=== PATIENT | female | born 1980 | race Caucasian/White ===

== ENCOUNTER 2019-05-27 11:19 | Emergency (ER) | payer BC ==
[2019-05-27] MEDS ORDERED: IBUPROFEN 400 MG TAB ONE (11:57)
[2019-05-27] MEDS ORDERED: AMOX/K CLAV 875 MG TAB ONE (11:57)
[2019-05-27] MEDS ORDERED: ACETAMINOPHEN 325 MG TABLET ONE (11:57)
--- NOTE | 2019-05-27 12:18 | RAD REPORT ---
EXAM DESCRIPTION: RAD - Hand Left 3 View - 05/27/2019 12:08 pm CLINICAL HISTORY: ANIMAL BITE COMPARISON: No comparisons FINDINGS: Soft tissue swelling is seen adjacent to the fifth metacarpal. No fracture seen.
--- NOTE | 2019-05-27 13:07 | EDPHYS ---
Physician Documentation [facility] Name: Arleen Brower Age: 39 yrs Sex: Female : 1980 Arrival Date: 05/27/2019 Time: 11:21 Bed 9 Private MD: ED Physician Asad Castro HPI: 05/26 11:40 This 39 yrs old Female presents to ER via Ambulatory with complaints of Dog cp Bite. 11:40 The patient was bitten on the left hand, by a dog, while trying to stop animals from cp fighting, at home. Onset: The symptoms/episode began/occurred just prior to arrival. Animal information: Animal control has been notified. Secondary to the bite the patient reports multiple lacerations, that are superficial, pain, multiple puncture wounds, that are deep, swelling. Associated signs and symptoms: Pertinent negatives: motor deficit, numbness distal to wound, heavy bleeding. 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 - Social history:: Smoking status: Patient reports the use of cigarette tobacco products, 3-4 cigarettes a day. ROS: 11:45 Constitutional: Negative for body aches, chills, fever. cp 11:45 Eyes: Negative for injury, pain, redness, and discharge. cp 11:45 ENT: Negative for drainage from ear(s), ear pain, sore throat, difficulty swallowing, difficulty handling secretions. 11:45 Cardiovascular: Negative for chest pain. 11:45 Respiratory: Negative for cough, shortness of breath, wheezing. 11:45 Abdomen/GI: Negative for abdominal pain, nausea, vomiting, and diarrhea. 11:45 Skin: Positive for laceration(s), puncture, swelling, of the left hand. 11:45 Neuro: Negative for altered mental status, headache, numbness, weakness. 11:45 All other systems are negative. Exam: 12:00 Head/Face: Normocephalic, atraumatic. cp 12:00 Constitutional: The patient appears in no acute distress, alert, awake, non-toxic, well developed, well nourished. 12:00 Head/face: Exam is negative for obvious evidence of injury or deformity. 12:00 Chest/axilla: Inspection: normal. 12:00 Cardiovascular: Rate: tachycardic. 12:00 Respiratory: the patient does not display signs of respiratory distress, Respirations: normal, labored breathing, is not present. 12:00 Musculoskeletal/extremity: Extremities: grossly normal except: noted in the left hand: laceration, puncture, swelling, ROM: full active range of motion, in the left hand, Perfusion: the extremity is normally perfused throughout, Sensation intact. 12:00 Skin: injury, laceration(s), that can be described as linear, multiple, superficial, mild bleeding noted to bonilla and dorsal sides left hand, puncture(s), that are deep, of the hyperthenar eminence left hand and posterior aspect proximal left thumb. Vital Signs: 11:24 BP 122 / 77; Pulse 110; Resp 18 S; Temp 99.3(TE); Pulse Ox 99% on R/A; Weight 117.93 kg aa5 (R); Height 5 ft. 2 in. (157.48 cm) (R); Pain 7/10; 11:24 Body Mass Index 47.55 (117.93 kg, 157.48 cm) aa5 MDM: 11:28 Patient medically screened. cp 13:05 Data reviewed: vital signs, nurses notes, radiologic studies, plain films, and as a cp result, I will discharge patient. 13:05 Differential diagnosis: superficial laceration, tendon injury, vascular injury, rabies, cp cellulitis. Test interpretation: by ED physician or midlevel provider: plain radiologic studies, xrays of left hand negative for fracture. Counseling: I had a detailed discussion with the patient and/or guardian regarding: the historical points, exam findings, and any diagnostic results supporting the discharge/admit diagnosis, radiology results, to return to the emergency department if symptoms worsen or persist or if there are any questions or concerns that arise at home. Response to treatment: the patient's symptoms have markedly improved after treatment. Special discussion: I discussed in detail with the patient the higher chance of wound infection based on his presenting history. ED course: VSS. Wounds cleaned and dressed. Will discharge to home for continued monitoring. 05/26 11:40 Order name: XRAY Hand LEFT 3 View cp 05/26 12:19 Order name: RAD; Complete Time: 13:29 [facility] 05/26 12:33 Order name: Wound Care: please clean and irrigate hand wounds; Complete Time: 12:36 cp 05/26 13:05 Order name: Wound dressing; Complete Time: 13:38 cp Administered Medications: 11:52 Drug: Augmentin 875 mg Route: PO; aa5 13:30 Follow up: Response: No adverse reaction aa5 11:52 Drug: Ibuprofen 800 mg Route: PO; aa5 13:30 Follow up: Response: No adverse reaction aa5 11:52 Drug: Tylenol 650 mg Route: PO; aa5 13:30 Follow up: Response: No adverse reaction aa5 Disposition: 05/27/19 13:06 Discharged to Home. Impression: Bitten by dog, Puncture wound without foreign body of left hand. - Condition is Stable. - Discharge Instructions: Puncture Wound, Animal Bite. - Prescriptions for Augmentin 875- 125 mg Oral Tablet - take 1 tablet by ORAL route every 12 hours for 10 days; 20 tablet. Naprosyn 500 mg Oral Tablet - take 1 tablet by ORAL route 2 times per day take with food; 20 tablet. - Medication Reconciliation Form, Thank You Letter, Antibiotic Education, Prescription Opioid Use, Work release form form. - Follow up: Private Physician; When: 2 - 3 days; Reason: Wound Recheck. - Problem is new. - Symptoms have improved. Addendum: 05/30/2019 07:04 Co-signature as Attending Physician, Asad Castro MD I agree with the assessment and c acosta plan of care. Signatures: Dispatcher [employer] Asad Serrano MD MD cha Williams, Irene, RN RN iw Maribel Ley RN RN aa5 Asad Feng PA PA cp Corrections: (The following items were deleted from the chart) 05/26 13:38 13:05 Splint ordered. cp iw 13:38 13:06 05/27/2019 13:06 Discharged to Home. Impression: Bitten by dog; Puncture wound iw without foreign body of left hand. Condition is Stable. Forms are Medication Reconciliation Form, Thank You Letter, Antibiotic Education, Prescription Opioid Use. Follow up: Private Physician; When: 2 - 3 days; Reason: Wound Recheck. Problem is new. Symptoms have improved. cp
--- NOTE | 2019-05-27 13:07 | ER ---
Nurse's Notes [facility] Name: Arleen Brower Age: 39 yrs Sex: Female : 1980 Arrival Date: 05/27/2019 Time: 11:21 Bed 9 Private MD: Diagnosis: Bitten by dog;Puncture wound without foreign body of left hand Presentation: 05/26 11:24 Chief complaint: Patient states: "my 2 dogs were fighting and I got in between and they aa5 bit my hand". Multiple bites noted to left hand, no bleeding noted at this time. Coronavirus screen: The patient has NOT traveled to a country currently being monitored by the [facility] within the last 14 days. The patient has NOT had contact with any known and/or suspected case of coronavirus. Ebola Screen: Patient negative for fever greater than or equal to 101.5 degrees Fahrenheit, and additional compatible Ebola Virus Disease symptoms. Initial Sepsis Screen: Does the patient meet any 2 criteria? No. Patient's initial sepsis screen is negative. Does the patient have a suspected source of infection? No. Patient's initial sepsis screen is negative. Risk Assessment: Do you want to hurt yourself or someone else? Patient reports no desire to harm self or others. 11:24 Method Of Arrival: Ambulatory aa5 11:24 Acuity: TI 4 aa5 Triage Assessment: 11:28 Bite description: bite sustained to left hand by a dog, animal information: aa5 vaccination(s) is current. [employer]: 11:26 LMP 05/14/2019 aa5 Historical: - Allergies: 11:25 No Known Allergies; aa5 - PMHx: 11:25 None; aa5 - PSHx: 11:25 None; aa5 - Immunization history:: Last tetanus immunization: < 5 years ago. - Social history:: Smoking status: Patient reports the use of cigarette tobacco products, 3-4 cigarettes a day. Screenin:30 Abuse screen: Denies threats or abuse. Nutritional screening: No deficits noted. aa5 Tuberculosis screening: No symptoms or risk factors identified. Fall Risk None identified. Assessment: 11:25 General: Appears comfortable, Behavior is calm, cooperative. Pain: Complains of pain in aa5 left hand. Neuro: Level of Consciousness is awake, alert, obeys commands, Oriented to person, place, time, situation. Cardiovascular: Capillary refill < 3 seconds is brisk in bilateral fingers. Respiratory: Airway is patent Respiratory effort is even, unlabored, Respiratory pattern is regular, symmetrical. GI: No signs and/or symptoms were reported involving the gastrointestinal system. : No signs and/or symptoms were reported regarding the genitourinary system. EENT: No signs and/or symptoms were reported regarding the EENT system. Derm: Skin to left hand is multiple puncture wounds noted to dorsal aspect and one puncture wound noted to palmar aspect of left hand, no active bleeding noted. Skin is pink, warm \\T\\ dry. 11:29 Reassessment: Contacted [facility] to report dog bite. . aa5 11:35 Reassessment: Doucette Eleonora called back and states to tell patient to call PD upon aa5 d/c home. . 11:55 Reassessment: Left hand soaked in saline and iodine. . aa5 11:55 Reassessment: Patient is alert, oriented x 3, equal unlabored respirations, skin aa5 warm/dry/pink. 13:30 Reassessment: Wound to left hand dressed with Neosporin, nonadherent dressing and aa5 Kerlix. . 13:35 Reassessment: Patient is alert, oriented x 3, equal unlabored respirations, skin aa5 warm/dry/pink. Vital Signs: 11:24 BP 122 / 77; Pulse 110; Resp 18 S; Temp 99.3(TE); Pulse Ox 99% on R/A; Weight 117.93 kg aa5 (R); Height 5 ft. 2 in. (157.48 cm) (R); Pain 7/10; 11:24 Body Mass Index 47.55 (117.93 kg, 157.48 cm) aa5 ED Course: 11:21 Patient arrived in ED. aa5 11:24 Arm band placed on. aa5 11:24 Patient has correct armband on for positive identification. Bed in low position. Adult aa5 w/ patient. 11:25 Triage completed. aa5 11:27 Maribel Ley, [employer] is Primary Nurse. aa5 11:27 Asad Feng PA is PHCP. cp 11:27 Asad Castro MD is Attending Physician. cp 13:30 No provider procedures requiring assistance completed. Patient did not have IV access aa5 during this emergency room visit. Administered Medications: 11:52 Drug: Augmentin 875 mg Route: PO; aa5 13:30 Follow up: Response: No adverse reaction aa5 11:52 Drug: Ibuprofen 800 mg Route: PO; aa5 13:30 Follow up: Response: No adverse reaction aa5 11:52 Drug: Tylenol 650 mg Route: PO; aa5 13:30 Follow up: Response: No adverse reaction aa5 Outcome: 13:06 Discharge ordered by . feng 13:35 Discharged to home ambulatory, with family. aa5 13:35 Condition: stable 13:35 Discharge instructions given to patient, Instructed on discharge instructions, follow up and referral plans. medication usage, Demonstrated understanding of instructions, follow-up care, medications, Prescriptions given X 2. 13:38 Patient left the ED. iw Signatures: Jazmyne Christopher RN RN iw Maribel Ley RN RN aa5 Asad Feng PA PA cp Corrections: (The following items were deleted from the chart) : 11:28 Bite description: by animal information: vaccination(s) is current, aa5 aa5
[2019-05-27 14:08] VITALS: BP 122/77; TEMP 99.3; O2SAT 99
== END 2019-05-27 13:38 | disposition home or self-care (01) ==
LOC: ER 11:19
DX: S61.452A Open bite of left hand, initial encounter (principal); W54.0XXA Bitten by dog, initial encounter; Y93.9 Activity, unspecified; Y92.9 Unspecified place or not applicable; Y99.9 Unspecified external cause status
CPT/HCPCS: 99283